=== PATIENT | male | born 1950 | race Two or more races ===

== ENCOUNTER → 2018-01-23 | Outpatient (CLI) | payer OTHER ==
[~2018-01-23] MED LIST: ASP81; ASPI-1471 PO; ASPI81TA94 PO; ATR80PT PO; CYC10 PO; CYCL10TA29 PO; DIA5 PO; FEN145 PO; FISH OIL; LEVO75TA73 PO; LOR5 PO; METO50TA GT; MULT-865 PO; NAP500 PO; PER PO; PNEU0.5D3 IM; SILD20TA PO; TADA10TA14 PO; [UNRECOGNIZED DRUG - REMARK]; [UNRECOGNIZED DRUG - REMARK]
[2018-01-23 07:11] LABS: PLATELET COUNT, AUTOMATED 122 K/uL (150-450)
[2018-01-23 08:54] LABS: LDL CHOLESTEROL 49 mg/dl
== END ==
LOC: LAB 06:45
PROVIDERS: ATTEND Internal Medicine
DX: E78.5 Hyperlipidemia, unspecified (principal); I25.10 Atherosclerotic heart disease of native coronary artery without angina pectoris; E03.9 Hypothyroidism, unspecified
CPT/HCPCS: 36415; 82040; 82247; 82310; 82374; 82435; 82465; 82565; 82947; 83718; 84075; 84132; 84155; 84295; 84443; 84450; 84460; 84478; 84520; 85025

== ENCOUNTER → 2018-09-11 | Outpatient (CLI) | payer OTHER | LOC: LAB 07:44 | PROVIDERS: ATTEND Internal Medicine | DX: I25.10 Atherosclerotic heart disease of native coronary artery without angina pectoris (principal); E78.5 Hyperlipidemia, unspecified; E03.9 Hypothyroidism, unspecified | CPT/HCPCS: 81001; 84153; 84439 ==

== ENCOUNTER → 2018-09-11 | Outpatient (REF) | DX: Z02.9 Encounter for administrative examinations, unspecified (principal) ==

== ENCOUNTER → 2019-03-26 | Outpatient (CLI) | payer OTHER ==
[2019-03-26 08:01] LABS: PLATELET COUNT, AUTOMATED 115 K/uL (150-450)
== END ==
LOC: LAB 07:02
PROVIDERS: ATTEND Internal Medicine
DX: I25.10 Atherosclerotic heart disease of native coronary artery without angina pectoris (principal); E78.5 Hyperlipidemia, unspecified; E03.9 Hypothyroidism, unspecified
CPT/HCPCS: 36415; 82040; 82247; 82310; 82374; 82435; 82465; 82565; 82947; 83718; 84075; 84132; 84155; 84295; 84443; 84450; 84460; 84478; 84520; 85025